=== PATIENT | female | born 1975 | race Caucasian/White ===

== ENCOUNTER 2021-10-08 10:59 | Emergency (ER) | payer OTHER ==
[2021-10-08 13:04] LABS: HEMOGLOBIN 11.8 gm/dl (12.3-15.3); RED BLOOD COUNT 4.6 M/UL (4.00-5.10)
[2021-10-08 13:17] LABS: BUN/CREATININE RATIO 9 (0-10)
== END 2021-10-08 23:00 | disposition short-term general hospital (02) ==
LOC: ER1 10:59
PROVIDERS: Physician Assistant Medical
DX: F32.A Depression, unspecified (principal); E11.9 Type 2 diabetes mellitus without complications; I10 Essential (primary) hypertension; Z20.822 Contact with and (suspected) exposure to COVID-19
CPT/HCPCS: 80053; 80061; 80307; 81001; 83735; 84702; 85025; 93005; 99285; G0480; U0002

== ENCOUNTER 2021-12-01 07:03 | Emergency (ER) | payer OTHER ==
[2021-12-01 07:52] LABS: HEMOGLOBIN 14.4 gm/dl (12.3-15.3); RED BLOOD COUNT 5.58 M/UL (4.00-5.10); WHITE BLOOD COUNT 11.4 K/UL (4.5-11.0)
[2021-12-01 08:14] LABS: BUN/CREATININE RATIO 11 (0-10)
== END 2021-12-01 14:12 ==
LOC: ER1 07:03
PROVIDERS: Emergency Medicine
DX: R45.851 Suicidal ideations (principal); I10 Essential (primary) hypertension; Z20.822 Contact with and (suspected) exposure to COVID-19; Z90.710 Acquired absence of both cervix and uterus
CPT/HCPCS: 80053; 80307; 83735; 85025; 99285; G0480; U0002

== ENCOUNTER 2022-01-29 14:32 | Emergency (ER) | payer OTHER ==
[2022-01-29 15:24] LABS: HEMOGLOBIN 13.3 gm/dl (12.3-15.3); RED BLOOD COUNT 4.98 M/UL (4.00-5.10); WHITE BLOOD COUNT 10.8 K/UL (4.5-11.0)
[2022-01-29 16:42] LABS: BUN/CREATININE RATIO 8 (0-10)
[2022-01-29] MEDS ORDERED: CEFDINIR300 MG PO (18:31)
[2022-01-29] MEDS ORDERED: REGLAN10 MG PO (18:31)
== END 2022-01-29 19:05 | disposition home or self-care (01) ==
LOC: ER1 14:32
PROVIDERS: Nurse Practitioner
DX: N39.0 Urinary tract infection, site not specified (principal); R07.89 Other chest pain; Z20.822 Contact with and (suspected) exposure to COVID-19; E78.5 Hyperlipidemia, unspecified; E11.9 Type 2 diabetes mellitus without complications; I10 Essential (primary) hypertension; Z88.8 Allergy status to other drugs, medicaments and biological substances
CPT/HCPCS: 0240U; 71045; 80053; 81001; 82150; 82550; 82553; 83690; 84484; 85025; 93005; 96374; 96375; 99284; J0696; J2765; Q9967

== ENCOUNTER 2022-06-18 10:00 | Emergency (ER) | payer OTHER ==
[~2022-06-18 10:00] MED LIST: CEFDINIR300 MG PO; REGLAN10 MG PO
[2022-06-18 12:44] LABS: HEMOGLOBIN 13.9 gm/dl (12.3-15.3); RED BLOOD COUNT 5.2 M/UL (4.00-5.10); WHITE BLOOD COUNT 11.4 K/UL (4.5-11.0)
[2022-06-18 13:14] LABS: BUN/CREATININE RATIO 18 (0-10)
== END 2022-06-18 18:15 | disposition short-term general hospital (02) ==
LOC: ER1 10:00
PROVIDERS: Emergency Medicine
DX: R45.851 Suicidal ideations (principal); E11.9 Type 2 diabetes mellitus without complications; E78.5 Hyperlipidemia, unspecified; I10 Essential (primary) hypertension; Z86.59 Personal history of other mental and behavioral disorders; Z90.89 Acquired absence of other organs; Z90.49 Acquired absence of other specified parts of digestive tract; Z90.710 Acquired absence of both cervix and uterus; Z20.822 Contact with and (suspected) exposure to COVID-19
CPT/HCPCS: 70450; 71045; 80053; 80307; 82140; 82550; 82553; 84484; 85025; 87040; 93005; 99285; U0002